=== PATIENT | female | born 1970 | race Hispanic/Latino ===

== ENCOUNTER 2020-05-15 15:23 | Emergency (ER) | payer OTHER ==
[~2020-05-15] VITALS: Ht 175.3 cm; Wt 86.2 kg
[2020-05-15 15:35] VITALS: TEMP 99.5
[2020-05-15 17:15] VITALS: BP 138/88
== END 2020-05-15 17:15 | disposition home or self-care (01) ==
LOC: ED 15:23
DX: F22 Delusional disorders (principal); R21 Rash and other nonspecific skin eruption; R11.2 Nausea with vomiting, unspecified
CPT/HCPCS: 36415; 80053; 84484; 85027; 93005; 96360; 96365; 96374; 96375; 99282; 99284; J2405

== ENCOUNTER 2020-05-15 22:36 | Emergency (ER) | payer OTHER ==
[~2020-05-15] VITALS: Ht 175.3 cm; Wt 86.2 kg
[2020-05-16 00:43] LABS: PLATELET COUNT 168 K/uL (152-353)
[2020-05-16 00:46] LABS: POTASSIUM 4.2 mmol/L (3.6-5.2); SODIUM 136 mmol/L (136-145)
[2020-05-16 05:08] VITALS: BP 135/81; TEMP 96.7
== END 2020-05-16 05:05 | disposition home or self-care (01) ==
LOC: ED 22:36
PROVIDERS: Emergency Medicine Emergency Medical Services
DX: R11.2 Nausea with vomiting, unspecified (principal)
CPT/HCPCS: 36415; 80053; 84484; 85027; 93005; 96360; 96365; 96374; 96375; 99284; J2405